=== PATIENT | female | born 1945 | race Caucasian/White ===

== ENCOUNTER 2022-01-25 08:56 | Emergency (ER) | payer MEDICARE, BC | END 2022-01-25 09:43 | disposition home or self-care (01) | LOC: LB.ED 08:56 | DX: I10 Essential (primary) hypertension (principal); R42 Dizziness and giddiness; Z88.8 Allergy status to other drugs, medicaments and biological substances; Z88.2 Allergy status to sulfonamides | CPT/HCPCS: 99283 ==

== ENCOUNTER 2024-05-21 10:48 | Emergency (ER) | payer MEDICARE, OTHER ==
[2024-05-21 11:29] LABS: HEMATOCRIT 45.7 % (37.0-47.0); HEMOGLOBIN 15.7 g/dL (11.5-16.5); MEAN CORPUSCULAR HEMOGLOBIN 30.3 pg (27.0-32.0); MEAN CORPUSCULAR HGB CONC 34.4 g/dL (31.0-35.0); MEAN PLATELET VOLUME 9.7 fL (6.0-10.0); RED BLOOD CELL COUNT 5.18 M/uL (3.80-5.80); RED CELL DISTRIBUTION WIDTH 13.9 % (11.0-16.0); WHITE BLOOD CELL COUNT,WBC 8.2 K/uL (4.0-11.0)
[2024-05-21] MEDS: Orphenadrine 60 MG/2 ML Inj IM ONE (11:37)
[2024-05-21] MEDS: Acetaminophen/HYDROcodone 325-5 MG Tab PO ONE (11:37)
[2024-05-21 11:51] LABS: ANION GAP 13.9 mmol/L (5.0-15.0); BLOOD UREA NITROGEN,BUN 14 mg/dL (8-26); BUN/CREATININE RATIO 17.7 (6-25); CALCIUM 9.6 mg/dL (8.5-10.1); CHLORIDE,CL 104 mmol/L (98-107); CREATININE 0.79 mg/dL (0.55-1.02); EST CRCL DRUG DOSING (CG) 50.68 mL/min; ESTIMATED GFR 77 mL/min (>60); GLUCOSE RANDOM 106 mg/dL (74-100); POTASSIUM,K 3.9 mmol/L (3.5-5.1); SODIUM,NA 142 mmol/L (136-145)
[2024-05-21] MEDS: Morphine 4 MG/ML VIAL IM ONE (11:58)
[2024-05-21 12:06] LABS: C-REACTIVE PROTEIN < 5.0 mg/L (<5.0)
[2024-05-21] MEDS: Ketorolac 30 MG/ML SDV IM ONE (12:55)
[2024-05-21] MEDS: Morphine 4 MG/ML VIAL ONE (12:59)
[2024-05-21] MEDS: Orphenadrine 60 MG/2 ML Inj ONE (12:59)
[2024-05-21] MEDS: Ketorolac 30 MG/ML SDV ONE (12:59)
[2024-05-21 13:52] VITALS: BP 137/92; PULSE 82
== END 2024-05-21 14:04 | disposition home or self-care (01) ==
LOC: LB.ED 10:48
DX: M54.41 Lumbago with sciatica, right side (principal); M21.70 Unequal limb length (acquired), unspecified site; M79.671 Pain in right foot; Z79.01 Long term (current) use of anticoagulants; Z79.899 Other long term (current) drug therapy; Z88.2 Allergy status to sulfonamides; Z88.8 Allergy status to other drugs, medicaments and biological substances
CPT/HCPCS: 36415; 72100; 73600; 80048; 83880; 84550; 85027; 85379; 86140; 96372; 99283; J1885; J2270; J2360; 99284; A9270-GY

== ENCOUNTER 2024-06-04 11:02 | Emergency (ER) | payer MEDICARE ==
[2024-06-04] MEDS ORDERED: Ketorolac 30 MG/ML SDV IVPUSH ONE (11:36)
[2024-06-04] MEDS: Orphenadrine 60 MG/2 ML Inj IM ONE (11:38)
[2024-06-04] MEDS: Ketorolac 30 MG/ML SDV IM ONE (11:39)
[2024-06-04 12:22] LABS: BASOPHILS ABSOLUTE AUTO 0.04 K/uL (0.02-0.10); BASOPHILS PERCENT AUTO 0.4 % (0.0-0.5); EOSINOPHILS ABSOLUTE AUTO 0.16 K/uL (0.04-0.40); EOSINOPHILS PERCENT AUTO 1.4 % (1.0-5.0); HEMATOCRIT 41.3 % (37.0-47.0); HEMOGLOBIN 14.2 g/dL (11.5-16.5); LYMPHOCYTES ABSOLUTE AUTO 1.86 K/uL (1.50-4.00); LYMPHOCYTES PERCENT AUTO 16.7 % (20.0-40.0); MEAN CORPUSCULAR HEMOGLOBIN 30.1 pg (27.0-32.0); MEAN CORPUSCULAR HGB CONC 34.4 g/dL (31.0-35.0); MEAN CORPUSCULAR VOLUME 88 fL (76-96); MEAN PLATELET VOLUME 9.7 fL (6.0-10.0); MONOCYTES ABSOLUTE AUTO 0.92 K/uL (0.20-0.80); MONOCYTES PERCENT AUTO 8.2 % (3.0-10.0); NEUTROPHILS ABSOLUTE AUTO 8.19 K/uL (2.00-7.50); NEUTROPHILS PERCENT AUTO 73.3 % (45.0-70.0); PLATELET COUNT,PLT 295 K/uL (150-500); RED BLOOD CELL COUNT 4.72 M/uL (3.80-5.80); RED CELL DISTRIBUTION WIDTH 13.7 % (11.0-16.0); WHITE BLOOD CELL COUNT,WBC 11.2 K/uL (4.0-11.0)
[2024-06-04 12:40] LABS: A/G RATIO 1.2 (0.8-2.0); ALBUMIN 4.2 g/dL (3.4-5.0); BILIRUBIN TOTAL 2.2 mg/dL (0.0-1.0); BUN/CREATININE RATIO 11.6 (6-25); CALCIUM 8.8 mg/dL (8.5-10.1); CREATININE 0.69 mg/dL (0.55-1.02); EST CRCL DRUG DOSING (CG) 58.02 mL/min; PROTEIN TOTAL,TP 7.7 g/dL (6.4-8.2)
[2024-06-04 12:47] LABS: APPEARANCE,URINE SLIGHTLY CLOUDY (CLEAR); BILIRUBIN,URINE NEGATIVE (NEGATIVE); COLOR,URINE YELLOW; GLUCOSE,URINE NEGATIVE (NEGATIVE); KETONES,URINE NEGATIVE (NEGATIVE); LEUKOCYTE ESTERASE,URINE SMALL (NEGATIVE); NITRITE,URINE NEGATIVE (NEGATIVE); OCCULT BLOOD,URINE NEGATIVE (NEGATIVE); PH,URINE 5.5 (5.0-8.0); PROTEIN,URINE NEGATIVE (NEGATIVE); UROBILINOGEN,URINE 0.2 E.U./dL (0.2-1.0)
[2024-06-04 12:53] LABS: RBC,URINE 0-5 /HPF; SQUAMOUS EPITHELIAL CELLS,UR FEW /HPF
[2024-06-04] MEDS: Potassium Chloride 20 MEQ Tab.ER PO ONE (12:56)
[2024-06-04] MEDS: NS + KCl 20mEq/L 1,000 ML IV SCH (13:11)
[2024-06-04 16:19] VITALS: BP 144/78; PULSE 61
[2024-06-07 23:12] LABS: ANAPLASMA PHAGOCYTOPHILUM PCR Not Detected; BABESIA MICROTI BY PCR Not Detected; BABESIA SPECIES BY PCR Not Detected; EHRLICHIA CHAFFEENSIS BY PCR Not Detected; EHRLICHIA EWINGII/CANIS BY PCR Not Detected; EHRLICHIA MURIS-LIKE BY PCR Not Detected
== END 2024-06-04 15:42 | disposition home or self-care (01) ==
LOC: LB.ED 11:02
DX: M25.571 Pain in right ankle and joints of right foot (principal); J44.9 Chronic obstructive pulmonary disease, unspecified; E03.9 Hypothyroidism, unspecified; Z90.710 Acquired absence of both cervix and uterus; Z79.899 Other long term (current) drug therapy; Z88.2 Allergy status to sulfonamides; Z88.8 Allergy status to other drugs, medicaments and biological substances
CPT/HCPCS: 36415; 73502-RT; 73552-RT; 73590-RT; 80053; 81001; 84550; 85025; 85651; 87468; 87469; 87484; 87798; 96365; 96366; 96372; 99283-25; 99284; A9270-GY; J1885; J2360; J3480

== ENCOUNTER 2025-02-05 12:10 | Emergency (ER) | payer MEDICARE ==
[2025-02-05 19:46] VITALS: BP 161/87; PULSE 71
== END 2025-02-05 13:35 | disposition home or self-care (01) ==
LOC: LB.ED 12:10
DX: S70.02XA Contusion of left hip, initial encounter (principal); M25.462 Effusion, left knee; E03.9 Hypothyroidism, unspecified; Z88.2 Allergy status to sulfonamides; Z88.8 Allergy status to other drugs, medicaments and biological substances; Z79.890 Hormone replacement therapy; Z79.899 Other long term (current) drug therapy; W00.9XXA Unspecified fall due to ice and snow, initial encounter
CPT/HCPCS: 73502-LT; 73562-LT; 99283